=== PATIENT | female | born 1970 | race Caucasian/White ===

== ENCOUNTER 2019-10-07 21:31 | Emergency (ER) | payer MEDICAID, OTHER ==
[~2019-10-07] VITALS: Ht 157.5 cm; Wt 61.2 kg
[2019-10-07 22:23] LABS: Basophils # (auto) 0 10 ^3/uL (0-0.2); Basophils % (auto) 0.3 % (0.0-2.0); Eosinophils # (auto) 0 10 ^3/uL (0-0.8); Eosinophils % (auto) 0.3 % (0.0-7.0); Hematocrit 43.2 % (36.0-46.0); Hemoglobin 14.5 g/dL (12.2-16.2); Lymphocytes # (auto) 0.6 10 ^3/uL (0.4-5.4); Lymphocytes % (auto) 7.3 % (10.0-50.0); Mean Corpuscular Hemoglobin 31.2 pg (28.0-32.0); Mean Corpuscular Hgb Conc. 33.6 g/dL (32.0-36.0); Monocytes # (auto) 0.2 10 ^3/uL (0-1.3); Monocytes % (auto) 3.1 % (0.0-12.0); Neutrophils # (auto) 6.7 10 ^3/uL (1.6-8.6); Nucleated Red Blood Cells % 0.1 %; Platelet Count (auto) 343 10^3/uL (140-450); Red Blood Cells 4.64 10^6/uL (4.0-5.20); White Blood Cell 7.5 10^3/uL (4.4-10.8)
[2019-10-07 22:37] LABS: Albumin 3.7 g/dL (3.4-5.0); BUN/Creatinine Ratio 19.6; Calcium 8.5 mg/dL (8.5-10.1); Potassium 3.5 mmol/L (3.5-5.1)
[2019-10-07 22:40] LABS: Bilirubin, Total 0.6 mg/dL (0.2-1.0); Total Protein 7.7 g/dL (6.4-8.2)
[2019-10-07 23:05] LABS: Urine Bacteria FEW /hpf (None Seen); Urine Blood Negative /uL (Negative); Urine Specific Gravity 1.005 (1.001-1.035); Urine WBC 9 /hpf (0 - 5)
[2019-10-07 23:45] VITALS: BP 120/76
== END 2019-10-08 00:12 | disposition home or self-care (01) ==
LOC: ER 21:31
DX: N39.0 Urinary tract infection, site not specified (principal)
CPT/HCPCS: 36415; 80053; 81001; 85025; 87070; 87804; 87880

== ENCOUNTER → 2020-01-09 | Outpatient (CLI) | payer OTHER | END | disposition home or self-care (01) | LOC: LAB 15:55 | PROVIDERS: ATTEND Physician Assistant | DX: U07.1 COVID-19 (principal) ==

== ENCOUNTER → 2020-01-19 | Outpatient (CLI) | payer OTHER | END | disposition home or self-care (01) | LOC: LAB 12:22 | PROVIDERS: ATTEND Nurse Practitioner Family | DX: R05 Cough (principal); Z20.828 Contact with and (suspected) exposure to other viral communicable diseases | CPT/HCPCS: C9803; U0003 ==

== ENCOUNTER → 2020-01-26 | Outpatient (CLI) | payer OTHER | END | disposition home or self-care (01) | LOC: LAB 13:24 | PROVIDERS: ATTEND Nurse Practitioner Family | DX: U07.1 COVID-19 (principal) | CPT/HCPCS: C9803; U0003 ==

== ENCOUNTER 2020-04-27 18:49 | Emergency (ER) | payer OTHER ==
[~2020-04-27] VITALS: Ht 157.5 cm; Wt 61.2 kg
[2020-04-27 19:30] VITALS: BP 121/86
[2020-04-27] MEDS ORDERED: IBUPROFEN 800 MG TAB PO ONE (19:30)
== END 2020-04-27 19:57 | disposition home or self-care (01) ==
LOC: EEVIPCON 18:49 → ER 18:49
DX: S43.401A Unspecified sprain of right shoulder joint, initial encounter (principal); W50.0XXA Accidental hit or strike by another person, initial encounter; Y93.89 Activity, other specified; Y92.89 Other specified places as the place of occurrence of the external cause; Y99.0 Civilian activity done for income or pay

== ENCOUNTER 2022-05-21 17:01 | Emergency (ER) | payer MEDICAID, OTHER ==
[~2022-05-21] VITALS: Ht 154.9 cm; Wt 59.0 kg
[2022-05-21 19:30] VITALS: BP 117/75
[2022-05-21] MEDS ORDERED: HYDROcodone-ACET 5/325MG TAB PO ONE (19:30)
[2022-05-21] MEDS ORDERED: ONDANSETRON ODT 4 MG TAB PO ONE (19:30)
== END 2022-05-21 21:20 | disposition home or self-care (01) ==
LOC: ER 17:01
DX: S66.911A Strain of unspecified muscle, fascia and tendon at wrist and hand level, right hand, initial encounter (principal); S90.31XA Contusion of right foot, initial encounter; S80.211A Abrasion, right knee, initial encounter; W10.8XXA Fall (on) (from) other stairs and steps, initial encounter; Y93.89 Activity, other specified; Y92.89 Other specified places as the place of occurrence of the external cause; Y99.8 Other external cause status
CPT/HCPCS: 73110; 73562; 73610; 73630; 99284; Q0162

== ENCOUNTER 2024-02-10 05:16 | Emergency (ER) | payer MEDICAID ==
[~2024-02-10] VITALS: Ht 157.5 cm; Wt 63.0 kg
[2024-02-10] MEDS: ONDANSETRON HCL 4 MG/2 ML VIAL IV ONE (06:14)
[2024-02-10] MEDS: SODIUM CHLORIDE 0.9% 1,000 ML IV ONE (06:16)
[2024-02-10 07:00] LABS: Urine Bacteria None Seen /hpf (None Seen)
[2024-02-10 07:02] LABS: Basophils # (auto) 0 10 ^3/uL (0-0.2); Basophils % (auto) 0.4 % (0.0-2.0); Eosinophils # (auto) 0.1 10 ^3/uL (0-0.8); Eosinophils % (auto) 1.4 % (0.0-7.0); Hematocrit 44.1 % (36.0-46.0); Hemoglobin 15.4 g/dL (12.2-16.2); Lymphocytes # (auto) 1.1 10 ^3/uL (0.4-5.4); Lymphocytes % (auto) 14.8 % (10.0-50.0); Mean Corpuscular Hemoglobin 32.9 pg (28.0-32.0); Mean Corpuscular Volume 93.9 fL (80.0-100.0); Monocytes # (auto) 0.5 10 ^3/uL (0-1.3); Neutrophils # (auto) 5.9 10 ^3/uL (1.6-8.6); Neutrophils % (auto) 76.4 % (37.0-80.0); Nucleated Red Blood Cells % 0.1 %; Platelet Count (auto) 372 10^3/uL (140-450); White Blood Cell 7.8 10^3/uL (4.4-10.8)
[2024-02-10 07:14] LABS: Urine Blood Negative /uL (Negative); Urine Clarity Clear (Clear); Urine Color Yellow (Yellow); Urine Mucus FEW (None Seen); Urine Protein, UAD Negative (Negative); Urine Specific Gravity 1.021 (1.001-1.035); Urine Urobilinogen Normal (Negative); Urine WBC 3 /hpf (0 - 5); Urine pH 6.5 (5.0-9.0)
[2024-02-10 07:15] LABS: Alanine Aminotransferase 18 U/L (7-40); Albumin 4.6 g/dL (3.2-4.8); Alkaline Phosphatase 91 U/L (46-116); Anion Gap 8 (5-15); Aspartate Aminotransferase 14 U/L (13-40); Bilirubin, Total 1.2 mg/dL (0.2-1.0); Blood Urea Nitrogen 16 mg/dL (9-23); Calcium 9.7 mg/dL (8.7-10.4); Carbon Dioxide 20 mmol/L (20-30); Chloride 111 mmol/L (98-107); Glucose 91 mg/dL (74-106); Lipase 45 U/L (12-53); Potassium 3.7 mmol/L (3.5-5.1); Sodium 139 mmol/L (136-145); Total Protein 7.7 g/dL (5.7-8.2)
[2024-02-10] MEDS: KETOROLAC TROMETH 30 MG/ML 1ML VIAL IV ONE (07:39)
[2024-02-10] MEDS: FAMOTIDINE (10MG/ML) 2ML VL IV ONE (07:39)
[2024-02-10] MEDS ORDERED: ZOFR4T PO (08:00)
[2024-02-10] MEDS ORDERED: DICY10CA PO (08:00)
[2024-02-10 08:08] VITALS: BP 117/77; PULSE 84; RESP 18; TEMP 97.4; O2SAT 100
== END 2024-02-10 08:21 | disposition home or self-care (01) ==
LOC: ER 05:16
DX: K52.9 Noninfective gastroenteritis and colitis, unspecified (principal)
CPT/HCPCS: 36415; 74176; 80053; 81001; 83690; 85025; 96361; 96374; 96375; 99285; J1885; J2405; J3490; J7030

== ENCOUNTER 2024-03-21 06:42 | Inpatient (IN) | payer MEDICAID ==
[~2024-03-21] VITALS: Ht 157.5 cm; Wt 67.7 kg
[~2024-03-21 06:42] MED LIST: DICY10CA PO; DOCU-94 PO; EZET10TA22 PO; GABA-1308 PO; HYDR-3682 PO; HYDR-4902 PO; MELO15TA29 PO; NAP500T PO; SEMA1INJ SC; ZOFR4T PO
[2024-03-21] MEDS: ACETAMINOPHEN 325 MG TAB PO ONE (07:25)
[2024-03-21] MEDS: SODIUM CHLORIDE 0.9% 1,000 ML IV ONE ×3 (07:26→15:22)
[2024-03-21] MEDS: KETOROLAC TROMETH 30 MG/ML 1ML VIAL IV ONE (07:26)
[2024-03-21] MEDS: ONDANSETRON HCL 4 MG/2 ML VIAL IV ONE (07:26)
[2024-03-21 07:33] VITALS: PULSE 100; RESP 18; O2SAT 96
[2024-03-21 08:01] LABS: Urine Bacteria None Seen /hpf (None Seen)
[2024-03-21 08:15] LABS: Urine Blood Negative /uL (Negative); Urine Clarity Clear (Clear); Urine Color Light-Yellow (Yellow); Urine Protein, UAD Negative (Negative); Urine Specific Gravity 1.011 (1.001-1.035); Urine Urobilinogen Normal (Negative); Urine WBC <1 /hpf (0 - 5); Urine pH 7.5 (5.0-9.0)
[2024-03-21 08:43] LABS: Rapid Influenza A Negative (Negative); Rapid Influenza B Negative (Negative)
[2024-03-21 08:43] LABS: COVID19 ANTIGEN SOFIA FIA NEGATIVE (NEGATIVE)
[2024-03-21 09:43] LABS: Hematocrit 38.4 % (36.0-46.0); Hemoglobin 13.4 g/dL (12.2-16.2); Mean Corpuscular Hemoglobin 32.1 pg (28.0-32.0); Mean Corpuscular Hgb Conc. 34.8 g/dL (32.0-36.0); Mean Corpuscular Volume 92.2 fL (80.0-100.0); Platelet Count (auto) 281 10^3/uL (140-450); Red Blood Cells 4.17 10^6/uL (4.0-5.20); Red Cell Distribution Width 13.1 % (11.8-14.3); White Blood Cell 11.2 10^3/uL (4.4-10.8)
[2024-03-21] MEDS: cefTRIAXone 1GM/50ML D5W 50 ML IV ONE (09:45)
[2024-03-21 09:52] LABS: Band Neutrophils % (manual) 0; Basophils % (manual) 0 (0.0-2.0); Blast Cells 0; Eosinophils % (manual) 0 (0-7); Metamyelocytes % 0; Myelocytes % 0; Promyelocytes % 0; Reactive Lymphocytes 0
[2024-03-21 09:55] LABS: Alanine Aminotransferase 13 U/L (7-40); Albumin 3.7 g/dL (3.2-4.8); Alkaline Phosphatase 78 U/L (46-116); Anion Gap 8 (5-15); Aspartate Aminotransferase 12 U/L (13-40); BUN/Creatinine Ratio 15.8 (10.0-20.0); Bilirubin, Total 1.5 mg/dL (0.2-1.0); Blood Urea Nitrogen 15 mg/dL (9-23); Calcium 8.6 mg/dL (8.7-10.4); Carbon Dioxide 20 mmol/L (20-31); Chloride 112 mmol/L (98-107); Glucose 103 mg/dL (74-106); Potassium 3.4 mmol/L (3.5-5.1); Sodium 140 mmol/L (136-145); Total Protein 6.1 g/dL (5.7-8.2)
[2024-03-21 10:10] VITALS: RESP 18; O2SAT 96
[2024-03-21 12:22] LABS: Lymphocytes % (manual) 4 (10.0-50.0); Monocytes % (manual) 5 (0-12)
[2024-03-21 12:23] LABS: Platelet Estimate Adequate
[2024-03-21] MEDS: ACETAMINOPHEN 325 MG TAB PO PRN (14:47)
[2024-03-21] MEDS: MORPHINE SULFATE INJ 2 MG/ml SYRG IV PRN (16:05)
[2024-03-21 19:15] VITALS: PULSE 118; RESP 18; O2SAT 96
[2024-03-21 21:34] VITALS: BP 107/65; PULSE 103; RESP 17; TEMP 100; O2SAT 94
[2024-03-21] MEDS: HYDROcodone-ACET 5/325MG TAB PO PRN (22:34)
[2024-03-22] VITALS (7 sets, daily range): BP systolic 99–116; BP diastolic 63–73; PULSE 82–117; RESP 16–20; TEMP 98.8–100; O2SAT 94–97
[2024-03-22 07:01] LABS: Chloride 115 mmol/L (98-107); Potassium 3.6 mmol/L (3.5-5.1); Sodium 143 mmol/L (136-145)
[2024-03-22 07:02] LABS: Anion Gap 8 (5-15); Calcium 8.4 mg/dL (8.7-10.4); Carbon Dioxide 20 mmol/L (20-31)
[2024-03-22 07:04] LABS: Basophils # (auto) 0 10 ^3/uL (0-0.2); Basophils % (auto) 0.5 % (0.0-2.0); Eosinophils # (auto) 0 10 ^3/uL (0-0.8); Hematocrit 35.3 % (36.0-46.0); Hemoglobin 12.3 g/dL (12.2-16.2); Lymphocytes # (auto) 0.6 10 ^3/uL (0.4-5.4); Lymphocytes % (auto) 13.2 % (10.0-50.0); Mean Corpuscular Hemoglobin 32.3 pg (28.0-32.0); Mean Corpuscular Volume 92.3 fL (80.0-100.0); Monocytes # (auto) 0.6 10 ^3/uL (0-1.3); Monocytes % (auto) 12.8 % (0.0-12.0); Neutrophils # (auto) 3.3 10 ^3/uL (1.6-8.6); Neutrophils % (auto) 73.5 % (37.0-80.0); Platelet Count (auto) 230 10^3/uL (140-450); Red Blood Cells 3.82 10^6/uL (4.0-5.20); Red Cell Distribution Width 13.3 % (11.8-14.3); White Blood Cell 4.5 10^3/uL (4.4-10.8)
[2024-03-22 07:07] LABS: BUN/Creatinine Ratio 8.2 (10.0-20.0); Blood Urea Nitrogen 8 mg/dL (9-23); Glucose 94 mg/dL (74-106)
[2024-03-22] MEDS: cefTRIAXone 1GM/50ML D5W 50 ML IV SCH (09:25)
[2024-03-22] MEDS: AZITHROMYCIN 500MG/ 250ML 250 ML IV ONE (12:40)
[2024-03-22] MEDS: ONDANSETRON HCL 4 MG/2 ML VIAL IV PRN (14:10)
[2024-03-22] MEDS: IOHEXOL 300 MG/ML 100ML BOTTLE IJ ONE (16:55)
[2024-03-23 00:58] VITALS: BP 112/79; PULSE 100; RESP 18; TEMP 99.6; O2SAT 97
[2024-03-23 05:00] VITALS: BP 114/79; PULSE 113; RESP 19; TEMP 98.8; O2SAT 96
[2024-03-23 07:30] VITALS: PULSE 102; RESP 17; O2SAT 98
[2024-03-23 07:33] LABS: Chloride 110 mmol/L (98-107); Potassium 3.7 mmol/L (3.5-5.1); Sodium 140 mmol/L (136-145)
[2024-03-23 07:34] LABS: Anion Gap 8 (5-15); Carbon Dioxide 22 mmol/L (20-31)
[2024-03-23 07:35] LABS: Calcium 9.1 mg/dL (8.7-10.4)
[2024-03-23 07:37] LABS: Basophils # (auto) 0 10 ^3/uL (0-0.2); Basophils % (auto) 0.6 % (0.0-2.0); Eosinophils # (auto) 0 10 ^3/uL (0-0.8); Eosinophils % (auto) 0.2 % (0.0-7.0); Hematocrit 38.8 % (36.0-46.0); Hemoglobin 13.5 g/dL (12.2-16.2); Lymphocytes # (auto) 0.7 10 ^3/uL (0.4-5.4); Mean Corpuscular Hgb Conc. 34.9 g/dL (32.0-36.0); Mean Corpuscular Volume 91.7 fL (80.0-100.0); Monocytes # (auto) 0.6 10 ^3/uL (0-1.3); Monocytes % (auto) 12.4 % (0.0-12.0); Neutrophils # (auto) 3.5 10 ^3/uL (1.6-8.6); Neutrophils % (auto) 71.8 % (37.0-80.0); Nucleated Red Blood Cells % 0.1 %; Platelet Count (auto) 261 10^3/uL (140-450); Red Blood Cells 4.23 10^6/uL (4.0-5.20); Red Cell Distribution Width 13.3 % (11.8-14.3); White Blood Cell 4.9 10^3/uL (4.4-10.8)
[2024-03-23 07:39] LABS: Glucose 97 mg/dL (74-106)
[2024-03-23 07:40] LABS: BUN/Creatinine Ratio 7.1 (10.0-20.0); Blood Urea Nitrogen 7 mg/dL (9-23)
[2024-03-23 08:00] VITALS: BP 121/77; PULSE 121; RESP 77; TEMP 98.3; O2SAT 98
[2024-03-23] MEDS: AZITHROMYCIN 500MG/ 250ML 250 ML IV SCH (09:33)
[2024-03-23 11:48] VITALS: BP 110/75; PULSE 95; RESP 16; TEMP 98.6; O2SAT 99
[2024-03-23 16:53] VITALS: BP 107/81; PULSE 86; RESP 19; TEMP 98.7; O2SAT 99
== END 2024-03-23 17:30 | disposition home or self-care (01) | DRG 113 ==
LOC: ER 06:42 → OVERFLOW 13:53 → WEST WING 21:23
PROVIDERS: ADMIT Internal Medicine Geriatric Medicine; ATTEND Internal Medicine Geriatric Medicine
DX: J06.9 Acute upper respiratory infection, unspecified (principal); E78.5 Hyperlipidemia, unspecified; F41.9 Anxiety disorder, unspecified; Z20.822 Contact with and (suspected) exposure to COVID-19; K57.30 Diverticulosis of large intestine without perforation or abscess without bleeding; Z87.442 Personal history of urinary calculi; Z90.49 Acquired absence of other specified parts of digestive tract
CPT/HCPCS: 36415; 71045; 71046; 74178; 80048; 80053; 81001; 83036; 83605; 85007; 85025; 85027; 87040; 87086; 87426; 87804; 99291; G0378; J1885; J2405